=== PATIENT | male | born 1975 | race Caucasian/White ===

== ENCOUNTER 2020-02-03 12:20 | Emergency (ER) | payer MEDICAID ==
[~2020-02-03] VITALS: Ht 185.4 cm; Wt 101.0 kg
[2020-02-03] MEDS ORDERED: ONDANSETRON 2MG/ML, 2ML IVPush ONE (13:30)
[2020-02-03] MEDS ORDERED: SODIUM CHLORIDE FLUSH 10ML SYR IVF ONE (13:30)
[2020-02-03] MEDS ORDERED: HYDROmorphone 2 MG/ML, 1ML IVPush PRN (13:30)
[2020-02-03] MEDS ORDERED: HYDROmorphone 1 MG/ML, 1ML INJ ONE (13:38)
[2020-02-03] MEDS ORDERED: ONDANSETRON 2MG/ML, 2ML ONE (13:38)
[2020-02-03 13:41] LABS: BASOPHILS # (AUTO) 0.09 x10^3/uL (0-0.1); BASOPHILS % (AUTO) 1 % (0-1); EOSINOPHILS # (AUTO) 0.26 x10^3/uL (0-0.4); EOSINOPHILS % (AUTO) 3 % (1-7); LYMPHOCYTES # (AUTO) 2.82 x10^3/uL (1-3.4); LYMPHOCYTES % (AUTO) 30 % (22-44); MD NO; MEAN CORPUSCULAR HEMOGLOBIN 32.5 pg (27.5-34.5); MEAN CORPUSCULAR HGB CONC 32.9 g/dL (33.2-36.2); MEAN CORPUSCULAR VOLUME 98.7 fL (81-97); MEAN PLATELET VOLUME 7.7 fL (7.4-10.4); MONOCYTES # (AUTO) 0.42 x10^3/uL (0.2-0.8); MONOCYTES % (AUTO) 4 % (2-9); NEUTROPHILS # (AUTO) 5.86 x10^3/uL (1.8-6.8); NEUTROPHILS % (AUTO) 62 % (42-75); PLATELET COUNT 341 x10^3/uL (130-400); RED BLOOD COUNT 4.83 x10^6/uL (4.38-5.82); RED CELL DISTRIBUTION WIDTH 14.5 % (9.4-14.8)
--- NOTE | 2020-02-03 13:46 | NUR ---
PT STATES LLQ ABD PAIN, STATES HX DIVERTICULITIS. PT DENIES N/V/D. ATTEMPT X2 START IV UNSUCCESSFUL. RN AT BEDSIDE WITH U/S TO ATTEMPT. WILL MEDICATE WHEN PT HAS IV.
[2020-02-03 13:54] LABS: ALANINE AMINOTRANSFERASE 53 U/L (12-78); ALBUMIN 3.6 g/dL (3.4-5.0); ANION GAP 2 mmol/L (5-15); CALCIUM 9.1 mg/dL (8.5-10.1); CHLORIDE 109 mmol/L (98-107); CREATININE 0.88 mg/dL (0.7-1.3)
[2020-02-03 13:56] LABS: ALKALINE PHOSPHATASE 64 U/L (45-117); BILIRUBIN,TOTAL 0.3 mg/dL (0.2-1.0); TOTAL PROTEIN 7.3 g/dL (6.4-8.2)
--- NOTE | 2020-02-03 14:09 | NUR ---
PT IV STARTED, MEDICATED FOR PAIN PER ORDERS. PT TO CT.
[2020-02-03] MEDS ORDERED: OMNIPAQUE 350 MG/ML, 100ML BOTTLE ONE (14:17)
--- NOTE | 2020-02-03 14:38 | NUR ---
UA COLLECTED, SENT TO LAB. PT STATES PAIN DECREASED, MEDICATION EFFECTION. PT AWAITING ALL RESULTS. CONT TO MONITOR.
[2020-02-03 14:45] LABS: MICROSCOPIC NOT IND
[2020-02-03] MEDS ORDERED: CIPROFLOXACIN 500 MG TABLET ONE (15:24)
[2020-02-03] MEDS ORDERED: METRONIDAZOLE PMX 500MG/100ML 100 ML ONE (15:24)
[2020-02-03] MEDS ORDERED: METRONIDAZOLE PMX 500MG/100ML 100 ML IVPB ONE (15:30)
[2020-02-03] MEDS ORDERED: CIPROFLOXACIN 500 MG TABLET PO ONE (15:30)
[2020-02-03 15:50] VITALS: BP 135/74
--- NOTE | 2020-02-03 15:51 | NUR ---
IVABX HUNG PER ORDERS, PER ERMD NO BLOOD CULTURES NEEDED PRIOR. PT DENIES NEEDS, AWARE OF POC. REMAINS ON MONITORS, VSS. CONT TO MONITOR.
== END 2020-02-03 16:48 | disposition home or self-care (01) ==
LOC: ED 13:01
DX: K57.32 Diverticulitis of large intestine without perforation or abscess without bleeding (principal); R10.32 Left lower quadrant pain; F17.200 Nicotine dependence, unspecified, uncomplicated
CPT/HCPCS: 36415; 74177; 80053; 81003; 83605; 83690; 85025; 96365; 96375; 99285; J1170; J2405; Q9967

== ENCOUNTER 2020-06-13 14:50 | Emergency (ER) | payer MEDICAID ==
[~2020-06-13] VITALS: Ht 185.4 cm; Wt 97.3 kg
[2020-06-13 14:52] VITALS: BP 124/77
[2020-06-13] MEDS ORDERED: PROPARACAINE OPHTH 0.5%, 15ML ONE (15:30)
== END 2020-06-13 16:00 | disposition home or self-care (01) ==
LOC: ED 15:00
DX: H01.004 Unspecified blepharitis left upper eyelid (principal); B30.9 Viral conjunctivitis, unspecified; H93.13 Tinnitus, bilateral; F17.200 Nicotine dependence, unspecified, uncomplicated
CPT/HCPCS: 99283

== ENCOUNTER 2020-08-30 12:06 | Inpatient (IN) | payer MEDICAID ==
[~2020-08-30] VITALS: Ht 185.4 cm; Wt 97.0 kg
--- NOTE | 2020-08-30 14:00 | NUR ---
REPLENISHMENT SPECIALIST: PT TO ROOM FROM LOBBY VIA W/C
[2020-08-30] MEDS ORDERED: ONDANSETRON 2MG/ML, 2ML ONE (15:05)
[2020-08-30] MEDS ORDERED: MORPHINE SULFATE 4 MG/ML, 1ML ONE (15:05)
--- NOTE | 2020-08-30 15:14 | NUR ---
PIV STARTED AND BLOOD DRAWN. PT MEDICATED PER MAR.
[2020-08-30] MEDS ORDERED: ONDANSETRON 2MG/ML, 2ML IVPush ONE (15:30)
[2020-08-30] MEDS ORDERED: MORPHINE SULFATE 4 MG/ML, 1ML IVPush PRN (15:30)
[2020-08-30 15:31] LABS: BASOPHILS % (AUTO) 1 % (0-1); EOSINOPHILS % (AUTO) 1 % (1-7); LYMPHOCYTES % (AUTO) 11 % (22-44); MEAN CORPUSCULAR HEMOGLOBIN 32.4 pg (27.5-34.5); MEAN CORPUSCULAR HGB CONC 33.8 g/dL (33.2-36.2); MEAN PLATELET VOLUME 7.6 fL (7.4-10.4); MONOCYTES % (AUTO) 5 % (2-9); NEUTROPHILS % (AUTO) 83 % (42-75); PLATELET COUNT 372 x10^3/uL (130-400); RED BLOOD COUNT 5.51 x10^6/uL (4.38-5.82); RED CELL DISTRIBUTION WIDTH 14.1 % (9.4-14.8)
[2020-08-30 15:35] LABS: ALANINE AMINOTRANSFERASE 27 U/L (12-78); ALBUMIN 4.4 g/dL (3.4-5.0); ANION GAP 4 mmol/L (5-15); CALCIUM 9.9 mg/dL (8.5-10.1); CHLORIDE 105 mmol/L (98-107)
[2020-08-30 15:38] LABS: ALKALINE PHOSPHATASE 71 U/L (45-117); BILIRUBIN,TOTAL 0.6 mg/dL (0.2-1.0); CREATININE 1.27 mg/dL (0.7-1.3)
--- NOTE | 2020-08-30 15:51 | NUR ---
PT HAD LIQUIED STOOL. GUAIAC WAS NEGATIVE. PT TO CT AT THIS TIME.
[2020-08-30 15:53] LABS: MD SCAN
[2020-08-30] MEDS ORDERED: OMNIPAQUE 350 MG/ML, 100ML BOTTLE ONE (16:06)
[2020-08-30] MEDS ORDERED: AMPICILLIN/SULBACTAM 3 GM in SODIUM CHLORIDE 0.9% 100 ML IV ONE (17:30)
[2020-08-30] MEDS ORDERED: METRONIDAZOLE PMX 500MG/100ML 100 ML IV ONE (17:30)
[2020-08-30] MEDS ORDERED: METRONIDAZOLE PMX 500MG/100ML 100 ML ONE (17:38)
--- NOTE | 2020-08-30 17:52 | NUR ---
UNASYN STARTED. ADMITTING PROVIDER AT BEDSIDE. PT RESTING WITH NO COMPLAINTS.
[2020-08-30] MEDS: METRONIDAZOLE PMX 500MG/100ML 100 ML IV SCH (18:28)
--- NOTE | 2020-08-30 18:29 | NUR ---
UNASYN COMPLETE. STARTING FLAGYL IV. VS UPDATED AND WNL. PT RESTING WITH NO COMPLAINTS. AWAITING HOSPITAL BED.
[2020-08-30] MEDS ORDERED: KETOROLAC 30 MG/1 ML IM PRN (18:30)
[2020-08-30] MEDS ORDERED: ACETAMINOPHEN 325 MG TABLET PO PRN (18:30)
[2020-08-30] MEDS ORDERED: POLYETHYLENE GLYCOL 17 GM PACKET PO PRN (18:30)
[2020-08-30] MEDS ORDERED: ONDANSETRON 2MG/ML, 2ML IVPush PRN (18:30)
[2020-08-30] MEDS ORDERED: morphine SULFATE 10 MG/ML, 1ML IVPush PRN (18:30)
[2020-08-30] MEDS ORDERED: BISACODYL 10 MG SUPP PR PRN (18:30)
--- NOTE | 2020-08-30 18:50 | NUR ---
Report from Edgard Vasquez. First contact, pt comfortable no pain, no n/v. VSS. Abx infusing. Pt waiting to be admitted. AIDET provided.
--- NOTE | 2020-08-30 19:01 | NUR ---
Report to WM Rich. Pt and all belongings tx to floor.
[2020-08-30] MEDS ORDERED: CEFTRIAXONE PMX 1GM/50ML 50 ML ONE (19:02)
[2020-08-30] MEDS: CEFTRIAXONE PMX 1GM/50ML 50 ML IV SCH (19:06)
--- NOTE | 2020-08-30 19:19 | NUR ---
Luis scanned, primed on pole. Ready to infuse when flagyl finished.
[2020-08-30 19:36] VITALS: BP 126/77
[2020-08-30] MEDS: HEPARIN 5,000 UNITS/ML, 1ML SQ SCH (22:35)
[2020-08-31 00:44] VITALS: BP 125/89
[2020-08-31] MEDS: METRONIDAZOLE PMX 500MG/100ML 100 ML IV SCH ×3 (02:04→18:00)
[2020-08-31] MEDS ORDERED: KETOROLAC 30 MG/1 ML IVPush PRN (02:30)
[2020-08-31] MEDS: HEPARIN 5,000 UNITS/ML, 1ML SQ SCH ×3 (05:55→22:35)
[2020-08-31 06:26] LABS: BASOPHILS % (AUTO) 0 % (0-1); EOSINOPHILS % (AUTO) 2 % (1-7); LYMPHOCYTES % (AUTO) 18 % (22-44); MEAN CORPUSCULAR HEMOGLOBIN 32.7 pg (27.5-34.5); MEAN CORPUSCULAR HGB CONC 34.4 g/dL (33.2-36.2); MEAN PLATELET VOLUME 7.5 fL (7.4-10.4); MONOCYTES % (AUTO) 8 % (2-9); NEUTROPHILS % (AUTO) 72 % (42-75); PLATELET COUNT 308 x10^3/uL (130-400); RED BLOOD COUNT 4.84 x10^6/uL (4.38-5.82); RED CELL DISTRIBUTION WIDTH 13.8 % (9.4-14.8)
[2020-08-31 06:28] LABS: MD NO
[2020-08-31 07:19] VITALS: BP 103/65
[2020-08-31] MEDS: SENNA/DOCUSATE TABLET PO SCH (08:56)
[2020-08-31 13:16] VITALS: BP 124/73
[2020-08-31] MEDS: CEFTRIAXONE PMX 1GM/50ML 50 ML IV SCH (19:36)
[2020-08-31 20:49] VITALS: BP 117/79
[2020-09-01 01:38] VITALS: BP 100/57
[2020-09-01] MEDS: METRONIDAZOLE PMX 500MG/100ML 100 ML IV SCH ×3 (01:53→18:11)
[2020-09-01] MEDS: HEPARIN 5,000 UNITS/ML, 1ML SQ SCH ×3 (05:52→22:38)
[2020-09-01 06:19] LABS: BASOPHILS % (AUTO) 1 % (0-1); EOSINOPHILS % (AUTO) 3 % (1-7); LYMPHOCYTES % (AUTO) 26 % (22-44); MEAN CORPUSCULAR HEMOGLOBIN 32.6 pg (27.5-34.5); MEAN CORPUSCULAR HGB CONC 34.2 g/dL (33.2-36.2); MEAN PLATELET VOLUME 7.4 fL (7.4-10.4); MONOCYTES % (AUTO) 9 % (2-9); NEUTROPHILS % (AUTO) 62 % (42-75); PLATELET COUNT 300 x10^3/uL (130-400); RED CELL DISTRIBUTION WIDTH 13.6 % (9.4-14.8)
[2020-09-01 06:20] LABS: MD NO
[2020-09-01 06:32] LABS: ANION GAP 6 mmol/L (5-15); CALCIUM 8.8 mg/dL (8.5-10.1); CHLORIDE 107 mmol/L (98-107)
[2020-09-01 07:25] VITALS: BP 101/60
[2020-09-01] MEDS: SENNA/DOCUSATE TABLET PO SCH (08:18)
[2020-09-01 14:00] VITALS: BP 115/72
[2020-09-01 19:15] VITALS: BP 123/82
[2020-09-01] MEDS: CEFTRIAXONE PMX 1GM/50ML 50 ML IV SCH (19:33)
[2020-09-02] MEDS: METRONIDAZOLE PMX 500MG/100ML 100 ML IV SCH ×2 (02:15→09:38)
[2020-09-02 02:16] VITALS: BP 128/83
[2020-09-02] MEDS: HEPARIN 5,000 UNITS/ML, 1ML SQ SCH ×2 (05:31→14:30)
[2020-09-02 08:48] VITALS: BP 123/68
[2020-09-02] MEDS: SENNA/DOCUSATE TABLET PO SCH (09:00)
[2020-09-02] MEDS ORDERED: OXYC5TAB98 PO ×5 (14:02→14:55)
[2020-09-02] MEDS ORDERED: AMOX1TAB64 PO ×3 (14:03→14:55)
== END 2020-09-02 16:34 | disposition home or self-care (01) | DRG 392 ==
LOC: ED 17:48 → EDIP 18:37 → 3N 19:20
PROVIDERS: ADMIT Family Medicine; ATTEND Hospitalist
DX: K57.20 Diverticulitis of large intestine with perforation and abscess without bleeding (principal); N17.9 Acute kidney failure, unspecified; F17.200 Nicotine dependence, unspecified, uncomplicated; F12.90 Cannabis use, unspecified, uncomplicated; K76.89 Other specified diseases of liver; R16.0 Hepatomegaly, not elsewhere classified; Z80.3 Family history of malignant neoplasm of breast
CPT/HCPCS: 36415; 74177; 80048; 80053; 85025; 96365; 96375; G0378; J0295; J0696; J1644; J2405; Q9967; J2270